=== PATIENT | female | born 1940 | race Caucasian/White ===

== ENCOUNTER → 2019-01-26 | Outpatient (CLI) | payer MEDICARE ==
[~2019-01-26] MED LIST: AMIO200 PO; AMLO10 PO; AMOCLA875 PO; CYCL10 PO; HYDACE5 PO; HYDCHL25 PO; OXYACE5T PO; POTCHL10ER PO; RXCYCL10 PO; RXOXYACE PO; SIMV40 PO; WARF3 PO; WARF4 PO
== END | disposition home or self-care (01) ==
LOC: LAB SHORT 12:02 → PLD 12:02
DX: L90.5 Scar conditions and fibrosis of skin (principal)
CPT/HCPCS: 88304; 88305

== ENCOUNTER → 2019-04-19 | Outpatient (CLI) | payer MEDICARE | END | disposition home or self-care (01) | LOC: LAB SHORT 10:55 → PLD 10:55 | DX: D48.5 Neoplasm of uncertain behavior of skin (principal) | CPT/HCPCS: 88305 ==

== ENCOUNTER → 2019-06-14 | Outpatient (CLI) | payer MEDICARE | END | disposition home or self-care (01) | LOC: LAB SHORT 08:04 → PLD 08:04 | DX: D48.5 Neoplasm of uncertain behavior of skin (principal) | CPT/HCPCS: 88305 ==

== ENCOUNTER → 2019-09-13 | Outpatient (CLI) | payer MEDICARE | END | disposition home or self-care (01) | LOC: PLD 09:34 → LAB SHORT 09:34 | DX: D48.5 Neoplasm of uncertain behavior of skin (principal) | CPT/HCPCS: 88304 ==

== ENCOUNTER 2022-02-10 07:40 | Day surgery (SDC) | payer MEDICARE ==
[~2022-02-10] VITALS: Ht 162.6 cm; Wt 69.7 kg
[~2022-02-10 07:40] MED LIST changes: +Amlodipine Bes2.5 MG PO; +LOSA50 PO; +ROSU10TA PO; +XARELTO20 MG PO
--- NOTE | 2022-02-10 08:26 | NUR ---
History, Chart, Medications and Allergies reviewed before start of procedure.Patient confirms NPO status and agrees with scheduled surgery. Pre-Op teaching done. Pt verbalizes understanding.
--- NOTE | 2022-02-10 08:49 | NUR ---
02/10/22 0849 Mauri Gant HISTORY, CHART, MEDICATIONS AND ALLERGIES REVIEWED BEFORE START OF PROCEDURE. PATIENT CONFIRMS NPO STATUS AND AGREES WITH SCHEDULED PROCEDURE. 3-LEAD EKG REVIEWED WITH PHYSICIAN PRIOR TO START OF PROCEDURE. MONITOR INTACT WITH CONTINUOUS PULSE OXIMETRY,CAPNOGRAPHY, 3-LEAD EKG, INTERMITTENT BP. SUPPLEMENTAL O2 TO BE TITRATED THROUGHOUT PROCEDURE TO MAINTAIN O2 SATURATION ABOVE 90%. PATIENT DETERMINED TO BE ASA APPROPRIATE FOR PROPOFOL SEDATION PRIOR TO START OF PROCEDURE BY DR. ROSS.
--- NOTE | 2022-02-10 09:46 | NUR ---
Patient up to Ambulate independently. Gait steady. Discharge instructions reviewed with patient. Patient verbalizes understanding. Copy given to patient to take home. Discharged via wheelchair to private car for ride home WITH DARRYL.
== END 2022-02-10 09:48 | disposition home or self-care (01) ==
LOC: ORD 07:40 → ORSCMMR 07:41 → ORD 08:30
DX: Z12.11 Encounter for screening for malignant neoplasm of colon (principal); K63.5 Polyp of colon; I10 Essential (primary) hypertension; I48.91 Unspecified atrial fibrillation; E78.00 Pure hypercholesterolemia, unspecified; Z79.01 Long term (current) use of anticoagulants; Z79.899 Other long term (current) drug therapy
CPT/HCPCS: 88305; J2704; J7120

== ENCOUNTER → 2023-02-05 | Outpatient (CLI) | payer MEDICARE | END | disposition home or self-care (01) | LOC: LAB SHORT 15:18 → LAB 15:18 | DX: T81.40XA Infection following a procedure, unspecified, initial encounter (principal) | CPT/HCPCS: 87070; 87205 ==

== ENCOUNTER 2024-07-26 09:18 | Emergency (ER) | payer OTHER, MEDICARE ==
[~2024-07-26] VITALS: Ht 160 cm; Wt 72.6 kg
[~2024-07-26 09:18] MED LIST changes: +LIDO700A20 TOP; +TRAM50 PO
[2024-07-26 10:01] VITALS: BP 173/71
[2024-07-26] MEDS ORDERED: Voltaren100 GM TOP (11:51)
== END 2024-07-26 11:58 | disposition home or self-care (01) ==
LOC: ER 09:18
DX: S63.501A Unspecified sprain of right wrist, initial encounter (principal); S43.401A Unspecified sprain of right shoulder joint, initial encounter; I10 Essential (primary) hypertension; I48.20 Chronic atrial fibrillation, unspecified; E78.00 Pure hypercholesterolemia, unspecified; W01.0XXA Fall on same level from slipping, tripping and stumbling without subsequent striking against object, initial encounter; Z79.899 Other long term (current) drug therapy; Z79.01 Long term (current) use of anticoagulants
CPT/HCPCS: 73030; 73110; 73502; 99284-25